=== PATIENT | female | born 1985 | race Hispanic/Latino ===

== ENCOUNTER 2020-02-05 09:58 | Outpatient (CLI) | payer OTHER ==
--- NOTE | 2020-02-05 10:53 | ULT ---
US OB Complete STANDARD History: Anatomy scan Comparison: None. Findings: Real-time grayscale, color and spectral analysis of the gravid uterus was performed. The cervix is closed measuring 5.6 cm in length. The placenta is posterior. Large posterior uterine fundal fibroid measuring up to 6.3 cm. The placenta is posterior and the presentation is breech. No placenta previa. Single viable intrauterine with average ultrasound age 20 week 5 day with estimated date of delivery June 19, 2020. Estimated weight is 13 ounces, 2nd percentile. Heart rate documented at 144 bpm. Anatomy: Head, cerebellum, cisterna magna, lateral ventricles, four-chamber heart, stomach, kidneys, cord insertion, bladder, spine, lips/nose, upper extremities, lower extremities, three-vessel cord are all normal. Biometry: Biparietal diameter: 4.74 cm, 20 week 3 day Head circumference: 18.01 cm, 20 week 4 day Abdominal circumference: 15.28 cm, 20 week 4 day Femur length: 3.47 cm, 21 week 0 day Impression: 1. Viable intrauterine with estimated weight of 13 ounces, 2nd percentile. 2. Closed cervix measuring 5.6 cm in length. 3. Large posterior uterine fundal fibroid measuring 6.3 cm.
== END 2020-02-05 09:59 | disposition home or self-care (01) ==
LOC: BICULT 09:58
PROVIDERS: ATTEND Nurse Practitioner
DX: O09.92 Supervision of high risk pregnancy, unspecified, second trimester (principal); O34.12 Maternal care for benign tumor of corpus uteri, second trimester; Z3A.20 20 weeks gestation of pregnancy
CPT/HCPCS: 76805